=== PATIENT | male | born 1970 | race Caucasian/White ===

== ENCOUNTER 2020-11-20 10:10 | Inpatient (IN) | payer MEDICARE, OTHER ==
[~2020-11-20] VITALS: Ht 172.7 cm; Wt 77.1 kg
[2020-11-20 11:02] LABS: HEMOGLOBIN 14.1 gm/dl (14.0-17.5); RED BLOOD COUNT 4.92 M/UL (4.20-5.50)
[2020-11-20 11:28] LABS: BUN/CREATININE RATIO 10 (0-10)
[2020-11-20] MEDS ORDERED: ASPIRIN 325MG325 MG PO (19:18)
[2020-11-20] MEDS ORDERED: FOLIC ACID20 MG PO (19:19)
[2020-11-21 02:18] LABS: HEMOGLOBIN 12.7 gm/dl (14.0-17.5); RED BLOOD COUNT 4.46 M/UL (4.20-5.50); WHITE BLOOD COUNT 16.1 K/UL (4.5-11.0)
[2020-11-21 02:44] LABS: BUN/CREATININE RATIO 8 (0-10)
--- NOTE | 2020-11-21 17:58 | NUR ---
REPORT GIVEN TO SHANTE WILDER ON PCU
[2020-11-22 04:02] LABS: HEMOGLOBIN 11.6 gm/dl (14.0-17.5); RED BLOOD COUNT 4.13 M/UL (4.20-5.50); WHITE BLOOD COUNT 18.7 K/UL (4.5-11.0)
[2020-11-22 04:32] LABS: BUN/CREATININE RATIO 12 (0-10)
[2020-11-23 02:43] LABS: RED BLOOD COUNT 3.88 M/UL (4.20-5.50); WHITE BLOOD COUNT 16.4 K/UL (4.5-11.0)
[2020-11-23 03:09] LABS: BUN/CREATININE RATIO 9 (0-10)
[2020-11-24 03:45] LABS: HEMOGLOBIN 10.7 gm/dl (14.0-17.5); RED BLOOD COUNT 3.82 M/UL (4.20-5.50)
[2020-11-24 03:47] LABS: WHITE BLOOD COUNT 11.6 K/UL (4.5-11.0)
[2020-11-24 04:12] LABS: BUN/CREATININE RATIO 5 (0-10)
[2020-11-25 03:22] LABS: HEMOGLOBIN 10.8 gm/dl (14.0-17.5); RED BLOOD COUNT 3.87 M/UL (4.20-5.50)
[2020-11-25 03:24] LABS: WHITE BLOOD COUNT 8.1 K/UL (4.5-11.0)
[2020-11-25 03:53] LABS: BUN/CREATININE RATIO 4 (0-10)
[2020-11-26 03:47] LABS: HEMOGLOBIN 10.4 gm/dl (14.0-17.5); RED BLOOD COUNT 3.71 M/UL (4.20-5.50); WHITE BLOOD COUNT 7.7 K/UL (4.5-11.0)
[2020-11-26 04:17] LABS: BUN/CREATININE RATIO 7 (0-10)
[2020-11-28] MEDS ORDERED: HYDROCODON-ACE1 EAC2 PO (10:22)
[2020-11-28] MEDS ORDERED: COLACE100 MG PO (10:22)
== END 2020-11-28 13:41 | disposition home or self-care (01) | DRG 853 ==
LOC: ER1 10:10 → MED SURG 4 17:52 → CDU 17:52 → MED SURG 4 18:52 → PROG CARE 18:52 → MED SURG 4 20:01 → PROG CARE 11-21 17:39 → MED SURG 4 11-26 19:08
PROVIDERS: Emergency Medicine; ADMIT Surgery
PROC: 0DTF0ZZ Resection of Right Large Intestine, Open Approach (ICD-10-PCS; principal; 2020-11-21 12:00)
DX: A41.9 Sepsis, unspecified organism (principal); K35.33 Acute appendicitis with perforation, localized peritonitis, and gangrene, with abscess; E87.1 Hypo-osmolality and hyponatremia; I96 Gangrene, not elsewhere classified; Z20.822 Contact with and (suspected) exposure to COVID-19; D18.09 Hemangioma of other sites; I25.10 Atherosclerotic heart disease of native coronary artery without angina pectoris; Z95.1 Presence of aortocoronary bypass graft; I10 Essential (primary) hypertension; E78.5 Hyperlipidemia, unspecified; F17.210 Nicotine dependence, cigarettes, uncomplicated; R19.7 Diarrhea, unspecified; Z88.8 Allergy status to other drugs, medicaments and biological substances; Z88.6 Allergy status to analgesic agent; E11.9 Type 2 diabetes mellitus without complications
CPT/HCPCS: 36415; 71045; 74183; 80048; 80053; 81001; 82150; 82272; 82570; 83605; 83690; 84300; 85025; 85027; 85610; 85730; 86850; 86900; 86901; 87040; 87070; 87077; 87186; 87205; 93005; 94640; 94664; 94760; 96365; 96375; 97161; 99284; C9113; J0690; J1100; J1170; J1650; J2001; J2250; J2270; J2405; J2543; J2704; J2710; J3010; J3480; J7030; J7050; J7120; Q9967; U0002; U0003

== ENCOUNTER → 2021-03-04 | Outpatient (CLI) | payer OTHER ==
[~2021-03-04] MED LIST: ASPIRIN 325MG325 MG PO; COLACE100 MG PO; FOLIC ACID20 MG PO; HYDROCODON-ACE1 EAC2 PO
== END ==
LOC: CT 12:53
DX: L02.91 Cutaneous abscess, unspecified (principal); K76.9 Liver disease, unspecified; R93.5 Abnormal findings on diagnostic imaging of other abdominal regions, including retroperitoneum
CPT/HCPCS: 36415; 82565; 84520; Q9967